=== PATIENT | male | born 2000 | race Caucasian/White ===

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

== ENCOUNTER 2018-01-02 21:56 | Emergency (ER) | END 2018-01-03 00:35 | disposition home or self-care (01) ==

== ENCOUNTER 2019-06-05 20:24 | Emergency (ER) | payer OTHER ==
[~2019-06-05] VITALS: Ht 170.2 cm; Wt 63.8 kg
[~2019-06-05 20:24] MED LIST changes: -AMO500 PO; +AMOX500C2 PO; +ASPI-826 PO; +CARB-155 RIGHT EAR; +CETI10CA PO; +IBUP-1542 PO
[2019-06-05 20:54] VITALS: BP 121/85; PULSE 64; RESP 16; Ht 170.2 cm; Wt 63.8 kg
== END 2019-06-05 23:46 | disposition home or self-care (01) ==
LOC: E/R 20:24
DX: H61.21 Impacted cerumen, right ear (principal); Z79.82 Long term (current) use of aspirin
CPT/HCPCS: 69210; Z7502